=== PATIENT | female | born 1950 ===

== ENCOUNTER 2018-10-13 08:20 | Outpatient (CLI) | payer OTHER ==
[~2018-10-13] VITALS: Ht 162.6 cm; Wt 71.7 kg
[2018-10-13] MEDS ORDERED: CEFUROXIME500 MG PO (10:17)
[2018-10-13] MEDS ORDERED: FLONASE16 GM NASAL (10:17)
[2018-10-13] MEDS ORDERED: ZYRTEC10 MG PO (10:17)
== END 2018-10-13 08:40 | disposition home or self-care (01) ==
LOC: OFIC 805 08:20
DX: J32.8 Other chronic sinusitis (principal); J31.0 Chronic rhinitis; R05 Cough; G43.809 Other migraine, not intractable, without status migrainosus

== ENCOUNTER 2018-11-10 08:23 | Outpatient (CLI) | payer OTHER ==
[~2018-11-10] VITALS: Ht 152.4 cm; Wt 71.7 kg
[~2018-11-10 08:23] MED LIST: CEFUROXIME500 MG PO; FLONASE16 GM NASAL; ZYRTEC10 MG PO
== END 2018-11-10 08:40 | disposition home or self-care (01) ==
LOC: OFIC 805 08:23
DX: J32.8 Other chronic sinusitis (principal); J31.0 Chronic rhinitis; R05 Cough; G43.909 Migraine, unspecified, not intractable, without status migrainosus

== ENCOUNTER 2018-11-23 11:17 | Outpatient (CLI) | payer OTHER | END 2018-11-23 11:20 | disposition home or self-care (01) | LOC: TOM 11:17 → OFIC 805 12-08 08:15 | DX: J32.8 Other chronic sinusitis (principal); J31.0 Chronic rhinitis; G43.909 Migraine, unspecified, not intractable, without status migrainosus ==

== ENCOUNTER 2018-12-08 10:40 | Outpatient (CLI) | payer OTHER ==
[2018-12-08] MEDS ORDERED: IPRATROPIUM BRO15 ML NASAL (12:46)
== END 2018-12-08 13:08 | disposition home or self-care (01) ==
LOC: OFIC 805 10:40
DX: J32.8 Other chronic sinusitis (principal); J31.0 Chronic rhinitis; R05 Cough

== ENCOUNTER 2019-01-12 10:02 | Outpatient (CLI) | payer OTHER ==
[~2019-01-12 10:02] MED LIST changes: +IPRATROPIUM BRO15 ML NASAL
[2019-01-12] MEDS ORDERED: FLONASE16 GM NASAL (10:31)
[2019-01-12] MEDS ORDERED: ZYRTEC10 MG PO (10:31)
[2019-01-12] MEDS ORDERED: IPRATROPIUM BRO15 ML NASAL (10:31)
== END 2019-01-12 10:20 | disposition home or self-care (01) ==
LOC: OFIC 805 10:02
DX: J32.8 Other chronic sinusitis (principal); J31.0 Chronic rhinitis; R05 Cough; G43.909 Migraine, unspecified, not intractable, without status migrainosus

== ENCOUNTER 2019-07-29 12:51 | Outpatient (CLI) | payer OTHER | END 2019-07-29 15:00 | disposition home or self-care (01) | LOC: MRI 12:51 | DX: M17.12 Unilateral primary osteoarthritis, left knee (principal); S83.242D Other tear of medial meniscus, current injury, left knee, subsequent encounter | CPT/HCPCS: 73721 ==

== ENCOUNTER 2021-05-27 04:37 | Outpatient (CLI) | payer OTHER | END 2021-05-27 14:11 | disposition home or self-care (01) | LOC: LAB 04:37 | DX: Z20.818 Contact with and (suspected) exposure to other bacterial communicable diseases (principal); Z20.828 Contact with and (suspected) exposure to other viral communicable diseases ==

== ENCOUNTER 2021-09-04 13:31 | Outpatient (CLI) | payer OTHER | END 2021-09-04 13:39 | disposition home or self-care (01) | LOC: MRI 13:31 | PROVIDERS: ATTEND Internal Medicine Rheumatology | DX: M15.0 Primary generalized (osteo)arthritis (principal); S46.012A Strain of muscle(s) and tendon(s) of the rotator cuff of left shoulder, initial encounter | CPT/HCPCS: 73218 ==

== ENCOUNTER 2021-11-29 08:44 | Outpatient (CLI) | payer OTHER | END 2021-11-29 08:53 | disposition home or self-care (01) | LOC: SONOGRAMA 08:44 | PROVIDERS: ATTEND Internal Medicine Gastroenterology | DX: K80.00 Calculus of gallbladder with acute cholecystitis without obstruction (principal) ==

== ENCOUNTER 2022-02-20 13:29 | Outpatient (CLI) | payer OTHER | END 2022-02-20 13:31 | disposition home or self-care (01) | LOC: RAD 13:29 | PROVIDERS: ATTEND Physical Medicine & Rehabilitation | DX: M54.2 Cervicalgia (principal); M54.59 Other low back pain ==

== ENCOUNTER 2022-04-03 08:48 | Outpatient (CLI) | payer OTHER | END 2022-04-03 08:54 | disposition home or self-care (01) | LOC: RX STUDY 08:48 | PROVIDERS: ATTEND Internal Medicine Gastroenterology | DX: R13.10 Dysphagia, unspecified (principal) ==

== ENCOUNTER 2023-04-03 14:22 | Outpatient (CLI) | payer OTHER | END 2023-04-03 14:28 | disposition home or self-care (01) | LOC: SONOGRAMA 14:22 | PROVIDERS: ATTEND Physical Medicine & Rehabilitation | DX: M25.512 Pain in left shoulder (principal); M75.102 Unspecified rotator cuff tear or rupture of left shoulder, not specified as traumatic ==

== ENCOUNTER 2024-02-29 12:39 | Outpatient (CLI) | payer OTHER | END 2024-02-29 12:41 | disposition home or self-care (01) | LOC: RAD 12:39 | PROVIDERS: ATTEND Internal Medicine Pulmonary Disease | DX: J45.31 Mild persistent asthma with (acute) exacerbation (principal) ==

== ENCOUNTER 2025-05-09 10:56 | Outpatient (CLI) | payer OTHER | END 2025-05-09 11:01 | disposition home or self-care (01) | LOC: TOM 10:56 | PROVIDERS: ATTEND Internal Medicine Cardiovascular Disease | DX: J32.9 Chronic sinusitis, unspecified (principal) ==